=== PATIENT | female | born 1980 | race Caucasian/White ===

== ENCOUNTER 2016-08-18 16:29 | Outpatient (CLI) | payer OTHER ==
[~2016-08-18] VITALS: Ht 167.6 cm; Wt 100.0 kg
[2016-08-18] VITALS (12 sets, daily range): BP systolic 143–163; BP diastolic 67–86
[~2016-08-18 16:29] MED LIST: PRENATAL TABLE1 EAC3 PO; PROZAC40 MG PO; SEROQUEL100 MG PO
[2016-08-18] MEDS ORDERED: BENADRYL25 MG PO (16:52)
[2016-08-18 17:59] LABS: EOSINOPHIL (%) 0.6 % (0-5); EOSINOPHIL COUNT 0.1 K/uL (0-0.3); HEMATOCRIT 39.2 % (36.0-46.0); IMMATURE GRANULOCYTE (%) 0.5 % (0.0-0.7); IMMATURE GRANULOCYTE COUNT 0.1 K/uL; LYMPHOCYTE COUNT 1.8 K/uL (1.0-2.8); MCH 32.1 PG (29.0-34.0); MCHC 33.9 G/DL (30.0-36.0); MCV 94.7 FL (83-99); MEAN PLAT.VOLUME 10.7 uM^3 (9.5-12.4); MONOCYTE (%) 7.3 % (3-12); MONOCYTE COUNT 0.7 K/uL (0-0.8); NEUTROPHIL (%) 72.1 % (45-76); NEUTROPHIL COUNT 6.7 K/uL (1.8-6.4); PLATELET COUNT 275 K/uL (156-360); RBC DIS.WIDTH-CV 14.3 % (11.8-14.6); RBC DIS.WIDTH-SD 49.2 % (39-53); RED BLOOD COUNT 4.14 M/uL (3.80-5.20); WHITE BLOOD COUNT 9.3 K/uL (4.1-10.2)
[2016-08-18 18:00] LABS: BILIRUBIN NEGATIVE; BLOOD NEGATIVE; COLOR YELLOW ((YELLOW)); GLUCOSE (STRIP) NEGATIVE; KETONES NEGATIVE; LEUKOCYTES NEGATIVE; NITRITE NEGATIVE; PH, URINE 6.5 (5-8); PROTEIN (STRIP) NEGATIVE; SPECIFIC GRAVITY 1.017 (1.000-1.030)
[2016-08-18 18:01] LABS: ADD MIUA? NO; UCUL ADDED? NO
[2016-08-18 18:03] LABS: AMPHETAMINES QUANT VALUE 0 NG/ML; BARBITUATES QUANT VALUE 0 NG/ML; BENZODIAZEPINES QUANT VALUE 0 NG/ML; BENZODIAZEPINES, URINE SCREEN Negative (200 ng/mL); MARIJUANA QUANT VALUE 0 NG/ML; OPIATES QUANTITATIVE VALUE 0 NG/ML; PHENCYCLIDINE QUANT VALUE 0 NG/ML; UR CREATININE CONCENTRATION 55.7 MG/DL
[2016-08-18 18:16] LABS: ANION GAP 10 MEQ/L (2-14); CHLORIDE 106 MEQ/L (99-109); POTASSIUM 4.2 MEQ/L (3.7-5.4); SAMPLE HEMOLYSIS CHECK 0; SAMPLE ICTERIC CHECK 0; SAMPLE LIPEMIA CHECK 0; SODIUM 137 MEQ/L (136-147)
[2016-08-18 18:17] LABS: TOTAL BILIRUBIN 0.7 MG/DL (0.0-1.0)
[2016-08-18 18:21] LABS: ALKALINE PHOSPHATASE 169 IU/L (3-129); GFR ESTIMATE (CALCULATED) > 59 mL/min/; UREA NITROGEN (BUN) 10 mg/dL (9-23)
[2016-08-18 18:22] LABS: GLUCOSE 119 mg/dL (70-99)
[2016-08-19 03:02] VITALS: BP 145/76
[2016-08-19 07:12] VITALS: BP 174/95
[2016-08-19 07:13] VITALS: BP 132/68
[2016-08-19 08:02] LABS: ALKALINE PHOSPHATASE 161 IU/L (3-129); ANION GAP 8 MEQ/L (2-14); CHLORIDE 108 MEQ/L (99-109); GFR ESTIMATE (CALCULATED) > 59 mL/min/; GLUCOSE 91 mg/dL (70-99); POTASSIUM 4.7 MEQ/L (3.7-5.4); SAMPLE HEMOLYSIS CHECK 0; SAMPLE ICTERIC CHECK 0; SAMPLE LIPEMIA CHECK 0; SODIUM 137 MEQ/L (136-147); TOTAL BILIRUBIN 0.7 MG/DL (0.0-1.0); UREA NITROGEN (BUN) 9 mg/dL (9-23)
[2016-08-19 09:51] VITALS: BP 133/70
== END 2016-08-19 11:10 | disposition home or self-care (01) ==
LOC: LDRP-OP 16:29 → 2WEST 16:30 → LDRP-OP 10-11 20:12
PROVIDERS: Advanced Practice Midwife
DX: O14.93 Unspecified pre-eclampsia, third trimester (principal); Z3A.36 36 weeks gestation of pregnancy
CPT/HCPCS: 59025; 80053; 81003; 82570; 84156; 85025 91; G0378

== ENCOUNTER 2016-08-23 10:23 | Inpatient (IN) | payer OTHER ==
[2016-08-23] VITALS (9 sets, daily range): BP systolic 131–158; BP diastolic 78–97
[~2016-08-23] VITALS: Ht 167.6 cm; Wt 95.0 kg
[~2016-08-23 10:23] MED LIST changes: +BENADRYL25 MG PO
[2016-08-23 12:04] LABS: EOSINOPHIL (%) 0.7 % (0-5); EOSINOPHIL COUNT 0.1 K/uL (0-0.3); HEMATOCRIT 41.8 % (36.0-46.0); IMMATURE GRANULOCYTE (%) 0.5 % (0.0-0.7); IMMATURE GRANULOCYTE COUNT 0.1 K/uL; LYMPHOCYTE COUNT 2.2 K/uL (1.0-2.8); MCH 31.5 PG (29.0-34.0); MCHC 33.7 G/DL (30.0-36.0); MCV 93.5 FL (83-99); MEAN PLAT.VOLUME 10.2 uM^3 (9.5-12.4); MONOCYTE COUNT 0.8 K/uL (0-0.8); NEUTROPHIL (%) 71.3 % (45-76); NEUTROPHIL COUNT 7.6 K/uL (1.8-6.4); PLATELET COUNT 294 K/uL (156-360); RBC DIS.WIDTH-CV 14.3 % (11.8-14.6); RBC DIS.WIDTH-SD 48.4 % (39-53); RED BLOOD COUNT 4.47 M/uL (3.80-5.20); WHITE BLOOD COUNT 10.7 K/uL (4.1-10.2)
[2016-08-23 13:03] LABS: ALKALINE PHOSPHATASE 192 IU/L (3-129); ANION GAP 11 MEQ/L (2-14); CHLORIDE 103 MEQ/L (99-109); GFR ESTIMATE (CALCULATED) > 59 mL/min/; GLUCOSE 74 mg/dL (70-99); POTASSIUM 4.6 MEQ/L (3.7-5.4); SAMPLE HEMOLYSIS CHECK 0; SAMPLE ICTERIC CHECK 0; SAMPLE LIPEMIA CHECK 0; SODIUM 136 MEQ/L (136-147); TOTAL BILIRUBIN 0.8 MG/DL (0.0-1.0); UREA NITROGEN (BUN) 8 mg/dL (9-23)
[2016-08-23 13:48] LABS: AMPHETAMINES QUANT VALUE 0 NG/ML; BARBITUATES QUANT VALUE 0 NG/ML; BENZODIAZEPINES QUANT VALUE 0 NG/ML; BENZODIAZEPINES, URINE SCREEN Negative (200 ng/mL); MARIJUANA QUANT VALUE 0 NG/ML; OPIATES QUANTITATIVE VALUE 0 NG/ML; PHENCYCLIDINE QUANT VALUE 0 NG/ML; UR CREATININE CONCENTRATION 79.4 MG/DL
[2016-08-23] MEDS ORDERED: SEROQUEL100 MG PO (14:21)
[2016-08-23] MEDS ORDERED: PROZAC40 MG PO (14:21)
[2016-08-23] MEDS ORDERED: BENADRYL25 MG PO (14:22)
[2016-08-23] MEDS ORDERED: PRENATAL TABLE1 EAC3 PO (14:22)
[2016-08-23] MEDS ORDERED: ENDOCET 5-3251 EACH PO (18:09)
[2016-08-23] MEDS ORDERED: IBUPROFEN800 MG PO (18:09)
[2016-08-24 02:57] VITALS: BP 125/69
[2016-08-24 07:48] VITALS: BP 131/78
[2016-08-24 08:33] LABS: EOSINOPHIL (%) 0.5 % (0-5); EOSINOPHIL COUNT 0.1 K/uL (0-0.3); HEMATOCRIT 38.6 % (36.0-46.0); IMMATURE GRANULOCYTE (%) 0.3 % (0.0-0.7); IMMATURE GRANULOCYTE COUNT 0.1 K/uL; LYMPHOCYTE COUNT 2.5 K/uL (1.0-2.8); MCH 31.8 PG (29.0-34.0); MCHC 33.7 G/DL (30.0-36.0); MCV 94.4 FL (83-99); MEAN PLAT.VOLUME 10.6 uM^3 (9.5-12.4); MONOCYTE COUNT 0.9 K/uL (0-0.8); NEUTROPHIL (%) 76.3 % (45-76); NEUTROPHIL COUNT 11.5 K/uL (1.8-6.4); PLATELET COUNT 240 K/uL (156-360); RBC DIS.WIDTH-CV 14.3 % (11.8-14.6); RBC DIS.WIDTH-SD 49.2 % (39-53); RED BLOOD COUNT 4.09 M/uL (3.80-5.20)
[2016-08-24 08:35] LABS: WHITE BLOOD COUNT 15.1 K/uL (4.1-10.2)
[2016-08-24 15:14] VITALS: BP 139/71
[2016-08-24 19:41] VITALS: BP 149/80
[2016-08-24 22:31] VITALS: BP 147/74
[2016-08-25 02:43] VITALS: BP 124/63
[2016-08-25 07:40] VITALS: BP 150/75
[2016-08-25 11:52] VITALS: BP 144/82
[2016-08-25 15:23] VITALS: BP 148/94
[2016-08-25 19:55] VITALS: BP 149/71
[2016-08-25 22:23] VITALS: BP 145/86
[2016-08-26 03:16] VITALS: BP 159/80
[2016-08-26 05:17] VITALS: BP 133/76
[2016-08-26 08:19] VITALS: BP 151/82
[2016-08-26 14:46] VITALS: BP 159/86
[2016-08-26 19:28] VITALS: BP 143/88
[2016-08-26 22:59] VITALS: BP 140/92
[2016-08-27 03:14] VITALS: BP 132/88
[2016-08-27 08:41] VITALS: BP 133/84
[2016-08-27 11:38] VITALS: BP 159/94
[2016-08-27 11:59] VITALS: BP 150/91
[2016-08-27] MEDS ORDERED: NIFEDIPINE ER30 MG PO (12:58)
[2016-08-27 13:04] VITALS: BP 148/80
== END 2016-08-27 14:30 | disposition home or self-care (01) | DRG 765 ==
LOC: LDRP-OP 10:23 → 2WEST 10:24 → LDRP-OP 10-11 16:12
PROVIDERS: Obstetrics & Gynecology
PROC: 10D00Z1 Extraction of Products of Conception, Low, Open Approach (ICD-10-PCS; principal; 2016-08-23)
DX: O13.4 Gestational [pregnancy-induced] hypertension without significant proteinuria, complicating childbirth (principal); O98.42 Viral hepatitis complicating childbirth; O99.324 Drug use complicating childbirth; O34.211 Maternal care for low transverse scar from previous cesarean delivery; N85.8 Other specified noninflammatory disorders of uterus; O99.334 Smoking (tobacco) complicating childbirth; F17.210 Nicotine dependence, cigarettes, uncomplicated; F14.10 Cocaine abuse, uncomplicated; O99.344 Other mental disorders complicating childbirth; B19.20 Unspecified viral hepatitis C without hepatic coma; Z3A.37 37 weeks gestation of pregnancy; Z37.0 Single live birth; F43.10 Post-traumatic stress disorder, unspecified
CPT/HCPCS: 80053; 82570; 83030; 84156; 85025; 86850; 86870; 86900; 86901; 86905; 86920; J0690; J1100; J2270; J2274; J2405; J2790; J3010; J7120

== ENCOUNTER 2016-11-04 17:23 | Emergency (ER) | payer OTHER ==
[~2016-11-04] VITALS: Ht 167.6 cm; Wt 87.0 kg
[~2016-11-04 17:23] MED LIST changes: +ENDOCET 5-3251 EACH PO; +IBUPROFEN800 MG PO; +NIFEDIPINE ER30 MG PO
[2016-11-04 20:56] LABS: HEMATOCRIT 39.2 % (36.0-46.0); MCHC 33.7 G/DL (30.0-36.0); MEAN PLAT.VOLUME 9.1 uM^3 (9.5-12.4); PLATELET COUNT 263 K/uL (156-360); RBC DIS.WIDTH-CV 13.7 % (11.8-14.6); RBC DIS.WIDTH-SD 46.8 % (39-53); RED BLOOD COUNT 4.26 M/uL (3.80-5.20)
[2016-11-04 21:07] LABS: CHLORIDE 106 mEq/L (99-109); POTASSIUM 4.1 mEq/L (3.7-5.4); SODIUM 139 mEq/L (136-147)
[2016-11-04 21:08] LABS: GLUCOSE 101 mg/dL (70-99)
[2016-11-04 21:10] LABS: ANION GAP 11 MEQ/L (2-14)
[2016-11-04 21:12] LABS: GFR ESTIMATE (CALCULATED) > 59 mL/min/
[2016-11-04 21:13] LABS: UREA NITROGEN (BUN) 17 mg/dL (9-23)
[2016-11-04 21:22] LABS: QUANTITATIVE HCG < 4.0 MIU/ML
[2016-11-04] MEDS ORDERED: NAPROSYN500 MG PO (21:56)
[2016-11-04 22:19] VITALS: BP 123/82
[2016-11-05 13:07] LABS: CHLAMYDIA TRACHOMATIS NEGATIVE; NEISSERIA GONORRHOEAE NEGATIVE
== END 2016-11-04 22:21 | disposition home or self-care (01) ==
LOC: EME 17:23
PROVIDERS: Nurse Practitioner Family
DX: R51 Headache (principal); N93.9 Abnormal uterine and vaginal bleeding, unspecified; Z98.891 History of uterine scar from previous surgery; F17.200 Nicotine dependence, unspecified, uncomplicated
CPT/HCPCS: 80048; 84702; 85027; 86850; 86900; 86901; 87210; 87491; 87591; 99281; 99283; J1885